=== PATIENT | male | born 1950 | race Caucasian/White ===

== ENCOUNTER 2022-12-28 07:03 | Day surgery (SDC) | payer OTHER ==
[2022-12-27 09:37] VITALS: BMI 23.8
[2022-12-28] MEDS ORDERED: Lidocaine 1% PF 5 ML VIAL ONE (09:06)
[2022-12-28] MEDS ORDERED: PROPOFOL 20 ML ONE (09:07)
== END 2022-12-28 09:52 | disposition home or self-care (01) ==
LOC: CSHSDC 07:03
PROVIDERS: ATTEND Internal Medicine Gastroenterology
PROC: 0DJD8ZZ Inspection of Lower Intestinal Tract, Via Natural or Artificial Opening Endoscopic (ICD-10-PCS; principal; 2022-12-28)
DX: K57.30 Diverticulosis of large intestine without perforation or abscess without bleeding (principal); K64.9 Unspecified hemorrhoids; K62.89 Other specified diseases of anus and rectum; J45.909 Unspecified asthma, uncomplicated; I10 Essential (primary) hypertension; K21.9 Gastro-esophageal reflux disease without esophagitis; M19.90 Unspecified osteoarthritis, unspecified site; E78.5 Hyperlipidemia, unspecified; H90.5 Unspecified sensorineural hearing loss; Z86.010 Personal history of colon polyps; Z88.6 Allergy status to analgesic agent; Z88.0 Allergy status to penicillin; Z79.899 Other long term (current) drug therapy
CPT/HCPCS: J2704